=== PATIENT | female | born 1970 | race Caucasian/White ===

== ENCOUNTER → 2016-12-23 | Outpatient (CLI) | payer BC ==
[~2016-12-23] MED LIST: ASPI-390 PO; GLUC1CAP35 PO; OMEG10007 PO; [UNRECOGNIZED DRUG - OTHER] TOP
--- NOTE | 2016-12-24 14:43 | MAMMOGRAPHY REPORT ---
BILATERAL DIGITAL DIAGNOSTIC MAMMOGRAM TOMOSYNTHESIS WITH CAD AND BILATERAL ULTRASOUND: 12/23/2016 CLINICAL HISTORY: 46-year-old woman presents for follow-up complete ultrasound for bilateral masses and follow-up of regional microcalcifications in the superior right breast. During today's diagnost ic mammograms, the patient reported a newly palpable mass in the 12:00 left breast, for which a tria ngle skin palpable marker was placed. TECHNIQUE: Bilateral CC and MLO 2-D digital and tomosynthesis images, spot magnification right CC a nd ML views were obtained. Current study was also evaluated with a Computer Aided Detection (CAD) s ystem. COMPARISON: Comparison is made to exams dated: 06/24/2016 ultrasound, 06/24/2016 mammogram, 12/21/2015 ultrasound, 12/21/2015 mammogram, 06/18/2015 mammogram, and 06/18/2015 ultrasound biopsy - [facility]. BREAST COMPOSITION: The tissue of both breasts is extremely dense, which lowers the sensitivity of mammography. FINDINGS: Overall the breast parenchymal pattern is stable compared to prior mammograms. There is e vidence of prior surgery in the upper outer quadrant of the right breast. The spot magnification vi ews of the right breast again demonstrate scattered and grouped punctate microcalcifications through out the right upper outer quadrant, many of which demonstrate layering on the MLO view suggesting be nign milk of calcium. These may calcifications do not appear significantly increased comparing to t he spot magnification views performed on 06/24/2016, and were likely stable compared to prior full-f ield mammograms dating back to 12/28/2012, therefore likely benign. However, given the slight incre ased conspicuity, another short interval follow-up diagnostic right mammogram including spot magnifi cation views is recommended in 6 months. There are a few partially circumscribed masses within the right breast, fluctuating in size comparing to prior mammograms. No spiculated or irregular mass, f ocal area of architectural distortion or developing asymmetry is seen within the right breast. There is a triangle skin palpable marker overlying the anterior 12:00 left breast. Near the area of new palpable concern is a lobulated mass that measures approximately 18 x 17 x 31 mm. This mass co ntains an internal ribbon-shaped metallic biopsy marker and pathology results yielded a fibroadenoma . However, when comparing back to all available prior mammograms, this mass has definitely increase d comparing to the 2012 exam and visually appears more prominent comparing to the 05/31/2015 exam. Given the interval change, surgical consultation for possible excision is recommended, particularly given that this mass is also newly palpable. No focal area of architectural distortion new irregula r or suspicious mass or suspicious microcalcifications are seen in the left breast. Real-time high-resolution ultrasound was performed in each breast including the axillae, and retroar eolar aspect of each breast. In the 12:00 left breast, 2 cm from the nipple, there is a hypoechoic solid mass with internal linear echogenic biopsy marker measuring approximately 18.9 x 13.1 x 27.6 m m. This has increased comparing to the prior available ultrasound from 06/12/2015 at which time it measured 22.6 x 10.8 x 13.4 mm. In the left 1:00 breast, 6 cm from the nipple, there is an oval par allel circumscribed hypoechoic solid-appearing mass measuring 5.0 x 2.3 x 6.5 mm. In the 1:00 left breast, 3 cm from the nipple, a small anechoic cyst is identified measuring 2.4 mm. A slightly larg er anechoic cyst is identified in the 1:00 left breast, 1 cm from the nipple, measuring 6.8 mm. A c ircumscribed oval hypoechoic solid mass is again seen in the 2:00 left breast, 6 cm from the nipple, measuring 12.6 x 4.8 x 17.4 mm. In the 2:00 left breast, 3 cm from the nipple, there is a parallel lobulated hypoechoic solid-appearing mass measuring 5.9 x 1.8 x 3.7 mm. A small rounded hypoechoic solid-appearing mass is seen in the 3:00 left breast, 4 cm from the nipple, measuring 4.0 x 2.7 x 3 .6 mm. A slightly larger hypoechoic solid-appearing mass in the 4:00 left breast, 5 cm from the nip ple, measure 6.1 x 3.8 x 6.4 mm. There is another lobulated parallel oval solid-appearing mass in t he 5:00 left breast, 3 cm from the nipple, measuring 4.5 x 2.0 x 4.6 mm. An oval circumscribed hypo echoic solid versus cystic mass is seen in the 6:00 left breast, 3 cm from the nipple, measuring 4.8 x 2.2 x 7.2 mm. A cystic appearing mass in the left 7:00 breast, 4 cm from the nipple measures 5.2 mm. A bilobed parallel circumscribed solid mass in the 8:00 left breast, 2 cm from the nipple leena ures 13.3 x 3.8 x 9.2 mm. In anechoic cystic appearing mass in the 10:00 left breast, 3 cm from the nipple measures 6.3 x 4.4 mm. In the 11:00 left breast, 1 cm from the nipple, there is a multilobu lated hypoechoic solid-appearing mass measuring 4.4 x 3.5 x 8.0 mm. A few morphologically normal ly mph nodes are identified in the left axilla. When comparing to the prior complete ultrasound of th e left breast, all of the solid-appearing masses appear stable, given slight differences in measurin g technique. However, the cystic appearing mass which was previously seen in the 2:30 left breast i s no longer identified, confirming a benign cyst which has resolved. In the right 12:00 breast, 4 cm from the nipple, there is a lobulated anechoic cystic appearing mass measuring 8.3 x 3.1 x 6.5 mm. Another cystic appearing mass is seen in the 12:00 right breast, 3 c m from the nipple, measuring 6.1 x 4.3 x 5.2 mm. There is an oval anechoic cystic mass in the 12:00 right breast, 1 cm from the nipple, measuring 9.4 x 5.0 mm, and an adjacent oval parallel hypoechoi c solid-appearing mass measuring 9.2 x 3.2 mm. A patch of hypoechoic tissue/probable stromal fibros is is identified in the 1:00 right breast, 5 cm from the nipple. There is mild benign duct ectasia in the retroareolar right breast. An oval parallel circumscribed hypoechoic solid versus cystic mas s in the 2:00 right breast, 2 cm from the nipple, measures 4.6 x 2.7 x 5.4 mm. Another cystic appea ring mass in the 2:00 right breast, 1 cm from the nipple, measures 4.2 mm. There is an oval hypoech oic solid-appearing mass in the 3:00 right breast, periareolar region, measuring 5.8 x 3.1 x 5.2 mm. A lobulated hypoechoic solid mass in the right 8:00 breast, 3 cm from the nipple, measures 14.8 x 5.2 x 26.8 mm. An anechoic simple cyst in the 10:00 right breast, 5 cm from the nipple, measures 10 .9 mm. A complicated cyst versus solid mass in the 10:00 periareolar right breast measures 9.3 mm. A possible oval circumscribed solid versus cystic mass in the 12:00 periareolar right breast measur es 5.6 mm. No suspicious right axillary lymphadenopathy was identified. All of the solid and cysti c masses currently seen in the right breast appear stable compared to the prior ultrasound. IMPRESSION: ACR BI-RADS CATEGORY 4: SUSPICIOUS, ULTRASOUND ACR BI-RADS CATEGORY 4: SUSPICIOUS 1. Surgical consultation for possible excision is recommended for a previously biopsied fibroadenom a in the 12:00 left breast. Although pathology was benign, this mass has increased in size compared to prior exams, currently measuring 18.9 x 13.1 x 27.6 mm. Previous measurements from 2015 were 22 .6 x 10.8 x 13.4 mm. This mass is also newly palpable by the patient. Although final pathology may simply yield a fibroadenoma, given the interval change, consideration for excision is recommended. 2. There are multiple solid and cystic masses scattered throughout each breast identified on comple te breast ultrasound. These most likely represent a combination of cysts/fibrocystic changes and be nign fibroadenomas. Other than a few decreasing cysts, all of the masses are considered stable comp ared to the previous ultrasound dated 06/24/2016. Another short interval follow-up bilateral whole breast ultrasound is recommended to ensure longer stability of the numerous benign-appearing solid m asses (30 minutes). 3. At the time of follow-up complete bilateral breast ultrasound, repeat spot magnification views s hould be obtained in the upper outer quadrant of the right breast to ensure stability of probably be nign regional microcalcifications. These results and recommendations were discussed with the patient at the time of the exam. Approximately 10% of breast cancers are not detected with mammography. A negative mammographic repor t should not delay biopsy if a clinically suggestive mass is present. Tami Dowell M.D. ay/:12/23/2016 21:46:44 Contracting Executive: Afsaneh Lauren, [facility] letter sent: Abnormal / BI-RADS Code: ACR BI-RADS Category 4: Suspicious Ultrasound BI-RADS: ACR BI-RADS Category 4: Suspic ious
== END | disposition home or self-care (01) ==
LOC: C.MAMM 09:03
PROVIDERS: ATTEND Obstetrics & Gynecology
DX: Z09 Encounter for follow-up examination after completed treatment for conditions other than malignant neoplasm (principal); N63 Unspecified lump in breast; N60.01 Solitary cyst of right breast; N60.02 Solitary cyst of left breast

== ENCOUNTER → 2017-06-24 | Outpatient (CLI) | payer BC ==
--- NOTE | 2017-06-25 13:55 | MAMMOGRAPHY REPORT ---
UNILATERAL RIGHT DIGITAL DIAGNOSTIC MAMMOGRAM TOMOSYNTHESIS AND TARGETED BILATERAL ULTRASOUND: 017 CLINICAL HISTORY: Short interval follow-up of right breast calcifications and follow-up of bilateral breast masses seen on ultrasound. The patient had interval surgical excision of a left 12:00 breast mass which yielded a benign fibroadenoma. TECHNIQUE: Breast tomosynthesis in addition to standard 2D mammography was performed. Right CC and MLO and 2-D and tomosynthesis images and spot magnification right cc and ML views were obtained. COMPARISON: Comparison is made to exams dated: 12/23/2016 mammogram, 12/23/2016 ultrasound, 06/24/2016 ma mmogram, 12/21/2015 mammogram, 06/18/2015 mammogram, and 06/12/2015 mammogram - [facility]. BREAST COMPOSITION: The tissue of the right breast is extremely dense, which lowers the sensitivity of mammography. FINDINGS: Spot magnification views of the right breast again demonstrate scattered and loosely group ed calcifications within the right upper outer quadrant, the majority of which demonstrate layering o n the lateral view suggestive of milk of calcium, best demonstrated on the prior lateral view from e June 2016 exam. The calcifications are not significantly changed compared to the June 2016 s pot magnification views and are also likely stable compared to the full-field views from the 2014 and 2012 exams. Calcifications are considered benign and compatible with milk of calcium. The remainde r of the right breast is not significantly changed, without suspicious masses, calcifications, or are as of architectural distortion noted. A few obscured masses within the right breast are not signific antly changed. Ultrasound was again performed of bilateral breasts in the region of the previously seen breast lawson s for which follow-up is recommended. Ill-defined hypoechoic regions are seen in the left 12:[address] in the region of the surgical bed, consistent with postsurgical changes. Multiple anechoic benign cysts were seen throughout both breasts. Circumscribed hypoechoic masses seen within the left breas t are not significantly changed dating back to at least the June 2016 exam, including a hypoechoic circumscribed 7 x 4 mm mass in the left breast at 1:00 6 cm from the nipple, hypoechoic parallel 1.8 x 0.5 x 1.6 cm mass in the left 1:00 breast 2 cm from the nipple, hypoechoic circumscribed parallel 7 x 2 x 4 mm mass in the left breast at 2:00 3 cm from the nipple, hypoechoic circumscribed 4 x 4 mm mass in the left breast at 3:00 4 cm from the nipple, hypoechoic circumscribed 7 x 4 x 6 mm mass in t he left 4:00 breast 5 cm from the nipple, hypoechoic circumscribed 4 x 3 mm mass in the left breast a t 5:00 3 cm from the nipple, hypoechoic circumscribed 5 x 5 mm mass in the left breast at 6:00 3 cm f rom the nipple, and lobulated hypoechoic 1.3 x 0.4 x 0.8 cm mass in the left breast at 8:00, 2 cm fro m the nipple, and lobulated hypoechoic solid 7 x 5 x 7 mm mass in the left breast at 11:00 1 cm from the nipple, and hypoechoic 4 mm circumscribed mass in the left 7:00 breast 4 cm from the nipple. In the right breast at 12:00, 1 cm from the nipple, there is an oval anechoic benign cyst as well as an adjacent hypoechoic circumscribed 10 x 6 cm mass which is stable. Other hypoechoic circumscribed masses in the right breast are also stable, including a 4 x 5 mm circumscribed hypoechoic mass in the right 2:00 breast 2 cm from the nipple, hypoechoic circumscribed 7 x 4 x 4 mm mass in the right 3:00 periareolar breast, and hypoechoic lobulated 2.8 x 0.7 x 1.4 cm mass in the right 8:00 breast 3 cm f rom the nipple which is stable when accounting for differences in measurement technique, and oval ane choic benign 1.3 cm cyst in the right 10:00 periareolar breast. IMPRESSION: ACR-BI-RADS CATEGORY 3: PROBABLY BENIGN, TARGETED ULTRASOUND ACR-BI-RADS CATEGORY 3: PRO BABLY BENIGN 1. Right upper-outer quadrant calcifications are stable and consistent with benign milk of calcium. 2. Multiple circumscribed hypoechoic masses in bilateral breasts are stable on ultrasound dating rosa maria k to at least June 2016 and are probably benign and likely represent fibroadenomas and/or complica melissa cysts. Recommend follow-up bilateral ultrasound in one year to confirm longer stability of the m asses (30 minute time slot). Also recommend annual screening mammography which is due December 2017. Approximately 10% of breast cancers are not detected with mammography. A negative mammographic report should not delay biopsy if a clinically suggestive mass is present. Indira Miller M.D. ah/:06/24/2017 16:41:00 Investigator Narcotics: Maegan CABELLO)(Agusto), [facility] letter sent: Follow Up Recommended 3 BI-RADS Code: ACR-BI-RADS Category 3: Probably Benign Ultrasound BI-RADS: ACR-BI-RADS Category 3: Pr obably Benign
== END | disposition home or self-care (01) ==
LOC: C.MAMM 08:58
PROVIDERS: ATTEND Obstetrics & Gynecology
DX: R92.1 Mammographic calcification found on diagnostic imaging of breast (principal); N63.10 Unspecified lump in the right breast, unspecified quadrant; N63.20 Unspecified lump in the left breast, unspecified quadrant

== ENCOUNTER → 2017-12-24 | Outpatient (CLI) | payer OTHER ==
--- NOTE | 2017-12-24 14:44 | MAMMOGRAPHY REPORT ---
BILATERAL DIGITAL SCREENING MAMMOGRAM TOMOSYNTHESIS WITH CAD: 12/24/2017 CLINICAL HISTORY: Routine screening. TECHNIQUE: Breast tomosynthesis in addition to standard 2D mammography was performed. Current study was also evaluated with a Computer Aided Detection (CAD) system. Bilateral CC and MLO 2D and tomosyn thesis images were obtained. COMPARISON: Comparison is made to exams dated: 05/31/2015 mammogram, 06/24/2016 mammogram, 12/23/2016 ma mmogram, 06/24/2017 mammogram, 12/21/2015 mammogram, and 06/12/2015 mammogram - [facility]. BREAST COMPOSITION: The tissue of both breasts is extremely dense, which lowers the sensitivity of m ammography. FINDINGS: There are no suspicious masses, calcifications, or areas of architectural distortion noted in either breast. Linear scar markers denote bilateral scars. Bilateral benign-appearing calcificat ions are not significantly changed. A round circumscribed benign-appearing 2.4 cm mass in the right 12:00 breast is increased compared to the May 2017 exam although was shown to represent a benig n cyst on the prior ultrasound exam. IMPRESSION: ACR BI-RADS CATEGORY 2: BENIGN There is no mammographic evidence of malignancy. A 1 year screening mammogram is recommended. Additi onally, the patient is due for follow-up bilateral whole breast ultrasound June 2018 (30 minute ti me slot). The patient will receive written notification of the results. Approximately 10% of breast cancers are not detected with mammography. A negative mammographic report should not delay biopsy if a clinically suggestive mass is present. Indira Miller M.D. /:12/24/2017 10:24:07 [employer] Machine Operator: Ambika YEUNG(Jennifer)(Agusto), [facility] [address] letter sent: Normal 1/2 BI-RADS Code: ACR BI-RADS Category 2: Benign
== END | disposition home or self-care (01) ==
LOC: C.MAMM 09:27
PROVIDERS: ATTEND Obstetrics & Gynecology
DX: Z12.31 Encounter for screening mammogram for malignant neoplasm of breast (principal)